=== PATIENT | male | born 1950 | race Caucasian/White ===

== ENCOUNTER 2018-11-19 13:24 | Emergency (ER) | payer MEDICARE ==
[~2018-11-19] VITALS: Ht 180.3 cm; Wt 87.5 kg
[2018-11-19 13:44] VITALS: BP 142/85
[2018-11-19 14:35] LABS: BASOPHILS # (AUTO) 0.08 x10^3/uL (0-0.1); BASOPHILS % (AUTO) 1 % (0-1); EOSINOPHILS # (AUTO) 0.19 x10^3/uL (0-0.4); EOSINOPHILS % (AUTO) 3 % (1-7); LYMPHOCYTES # (AUTO) 1.45 x10^3/uL (1-3.4); LYMPHOCYTES % (AUTO) 24 % (22-44); MD NO; MEAN CORPUSCULAR HGB CONC 34.8 g/dL (33.2-36.2); MEAN CORPUSCULAR VOLUME 91.9 fL (81-97); MEAN PLATELET VOLUME 7.6 fL (7.4-10.4); MONOCYTES # (AUTO) 0.64 x10^3/uL (0.2-0.8); MONOCYTES % (AUTO) 11 % (2-9); NEUTROPHILS % (AUTO) 61 % (42-75); PLATELET COUNT 211 x10^3/uL (130-400); RED BLOOD COUNT 5.05 x10^6/uL (4.38-5.82); RED CELL DISTRIBUTION WIDTH 13.9 % (9.4-14.8)
[2018-11-19 14:41] LABS: ALBUMIN 3.6 g/dL (3.4-5.0); ANION GAP 7 mmol/L (5-15); CALCIUM 8.2 mg/dL (8.5-10.1); CHLORIDE 108 mmol/L (98-107); CREATININE 1.23 mg/dL (0.7-1.3)
== END 2018-11-19 16:02 | disposition home or self-care (01) ==
LOC: ED 15:50
DX: G44.52 New daily persistent headache (NDPH) (principal); G30.9 Alzheimer's disease, unspecified
CPT/HCPCS: 36415; 70450; 80048; 82040; 85025; 99284

== ENCOUNTER 2019-03-07 17:53 | Emergency (ER) | payer MEDICARE ==
[~2019-03-07] VITALS: Ht 180.3 cm; Wt 82.0 kg
[2019-03-07] MEDS ORDERED: TIZA2CAP PO (18:15)
[2019-03-07] MEDS ORDERED: MEMA5TAB PO (18:15)
[2019-03-07] MEDS ORDERED: HYDR-3237 PO (18:15)
[2019-03-07] MEDS ORDERED: LAMO100T5 PO (18:15)
[2019-03-07] MEDS ORDERED: DONE10TA7 PO (18:15)
[2019-03-07] MEDS ORDERED: CITA40TA5 PO (18:15)
[2019-03-07] MEDS ORDERED: DICL75TA3 PO (18:15)
[2019-03-07] MEDS ORDERED: FAMO20TA3 PO (18:15)
--- NOTE | 2019-03-07 18:19 | NUR ---
PT BIB FAMILY FOR INTERMITTENT ABDOMINAL PAIN SINCE APPROX 09/2018. STATES INCREASED PAIN AFTER SPINAL CORD STIMULATOR WAS PLACED. SEEN BY GI WHO ORDERED ENDOSCOPY AND COLONOSCOPY WITHOUT RESULTS AT THIS TIME. PT REPORTS INCREASED RUQ ABDOMINAL PAIN X LAST WEEK WITH SOME VOMITING ON 03/04. PT SEEN IN [facility] TODAY AND REFERRED TO ED. NO OTHER SYMPTOMS, PT RESTING COMFORTABLY IN BED WITH NO NEEDS AT THIS TIME. AWAITING ERP ASSESSMENT.
[2019-03-07] MEDS ORDERED: OMNIPAQUE 350 MG/ML, 100ML BOTTLE ONE (19:00)
--- NOTE | 2019-03-07 19:02 | NUR ---
REPORT FROM ARIS ORDOÑEZ. PT SITTING UP IN [facility] NOTED. BP/SPO2 MONITORING IN PLACE. VS WNL. FAMILY AT BEDSIDE. PT DENIES PAIN/NAUSEA AT THIS TIME AND DENIES NEED FOR MEDICATIONS. PT/FAMILY UPDATED TO POC (CT &UA/RESULTS/RECHECK) AND DEMONSTRATES UNDERSTANDING. IV ESTABLISHED, LABS DRAWN. PT PROVIDED URINAL FOR UA.
[2019-03-07 19:09] LABS: BASOPHILS # (AUTO) 0.02 x10^3/uL (0-0.1); BASOPHILS % (AUTO) 0 % (0-1); EOSINOPHILS # (AUTO) 0.01 x10^3/uL (0-0.4); EOSINOPHILS % (AUTO) 0 % (1-7); LYMPHOCYTES # (AUTO) 0.83 x10^3/uL (1-3.4); LYMPHOCYTES % (AUTO) 14 % (22-44); MD NO; MEAN CORPUSCULAR HEMOGLOBIN 31.7 pg (27.5-34.5); MEAN CORPUSCULAR HGB CONC 34.3 g/dL (33.2-36.2); MEAN CORPUSCULAR VOLUME 92.5 fL (81-97); MEAN PLATELET VOLUME 7.5 fL (7.4-10.4); MONOCYTES # (AUTO) 0.35 x10^3/uL (0.2-0.8); MONOCYTES % (AUTO) 6 % (2-9); NEUTROPHILS % (AUTO) 79 % (42-75); PLATELET COUNT 246 x10^3/uL (130-400); RED BLOOD COUNT 4.75 x10^6/uL (4.38-5.82); RED CELL DISTRIBUTION WIDTH 12.8 % (9.4-14.8)
[2019-03-07 19:20] LABS: ALANINE AMINOTRANSFERASE 23 U/L (12-78); ALBUMIN 3.9 g/dL (3.4-5.0); ANION GAP 5 mmol/L (5-15); CALCIUM 8.5 mg/dL (8.5-10.1); CHLORIDE 107 mmol/L (98-107); CREATININE 1.14 mg/dL (0.7-1.3)
--- NOTE | 2019-03-07 19:20 | NUR ---
UA COLLECTED AND SENT
[2019-03-07 19:25] LABS: ALKALINE PHOSPHATASE 55 U/L (45-117); BILIRUBIN,TOTAL 1.2 mg/dL (0.2-1.0); TROPONIN I < 0.015 ng/mL (0.000-0.045)
[2019-03-07 19:33] LABS: MICROSCOPIC NOT IND
[2019-03-07 19:35] LABS: CULTURE INDICATED? NO
[2019-03-07 20:49] VITALS: BP 160/91
== END 2019-03-07 20:55 | disposition home or self-care (01) ==
LOC: ED 19:49
DX: R10.84 Generalized abdominal pain (principal); R11.2 Nausea with vomiting, unspecified; M19.90 Unspecified osteoarthritis, unspecified site
CPT/HCPCS: 36415; 74177; 80053; 81003; 83690; 84484; 85025; 99284; Q9967

== ENCOUNTER 2019-04-14 11:58 | Emergency (ER) | payer MEDICARE ==
[~2019-04-14] VITALS: Ht 180.3 cm; Wt 78.0 kg
[~2019-04-14 11:58] MED LIST: CITA40TA5 PO; DICL75TA3 PO; DONE10TA7 PO; FAMO20TA3 PO; HYDR-3237 PO; LAMO100T5 PO; MEMA5TAB PO; TIZA2CAP PO
[2019-04-14] MEDS ORDERED: ONDANSETRON 2MG/ML, 2ML IVPush ONE (13:00)
[2019-04-14] MEDS ORDERED: FAMOTIDINE 20 MG/2 ML IV ONE (13:00)
[2019-04-14] MEDS ORDERED: SODIUM CHLORIDE FLUSH 10ML SYR IVF ONE (13:00)
[2019-04-14 13:05] LABS: BASOPHILS # (AUTO) 0.03 x10^3/uL (0-0.1); BASOPHILS % (AUTO) 1 % (0-1); EOSINOPHILS # (AUTO) 0.07 x10^3/uL (0-0.4); EOSINOPHILS % (AUTO) 1 % (1-7); LYMPHOCYTES # (AUTO) 1.15 x10^3/uL (1-3.4); LYMPHOCYTES % (AUTO) 24 % (22-44); MD NO; MEAN CORPUSCULAR HEMOGLOBIN 31.6 pg (27.5-34.5); MEAN CORPUSCULAR HGB CONC 34.8 g/dL (33.2-36.2); MEAN CORPUSCULAR VOLUME 90.9 fL (81-97); MEAN PLATELET VOLUME 7.3 fL (7.4-10.4); MONOCYTES % (AUTO) 8 % (2-9); NEUTROPHILS # (AUTO) 3.19 x10^3/uL (1.8-6.8); NEUTROPHILS % (AUTO) 66 % (42-75); PLATELET COUNT 225 x10^3/uL (130-400); RED BLOOD COUNT 4.59 x10^6/uL (4.38-5.82); RED CELL DISTRIBUTION WIDTH 13.4 % (9.4-14.8)
[2019-04-14 13:15] LABS: ALBUMIN 3.8 g/dL (3.4-5.0); ANION GAP 5 mmol/L (5-15); CALCIUM 8.2 mg/dL (8.5-10.1); CHLORIDE 108 mmol/L (98-107)
[2019-04-14 13:19] LABS: CREATININE 0.88 mg/dL (0.7-1.3)
[2019-04-14 13:20] LABS: ALANINE AMINOTRANSFERASE 20 U/L (12-78); ALKALINE PHOSPHATASE 50 U/L (45-117); BILIRUBIN,TOTAL 0.9 mg/dL (0.2-1.0); TOTAL PROTEIN 6.6 g/dL (6.4-8.2)
[2019-04-14 13:23] LABS: MICROSCOPIC NOT IND
[2019-04-14 13:24] LABS: CULTURE INDICATED? NO
--- NOTE | 2019-04-14 13:25 | NUR ---
AT BEDSIDE. AWAITING DISPO.
[2019-04-14] MEDS ORDERED: FAMOTIDINE 20 MG/2 ML ONE (13:59)
[2019-04-14] MEDS ORDERED: ONDANSETRON 2MG/ML, 2ML ONE (13:59)
[2019-04-14 14:05] VITALS: BP 132/84
--- NOTE | 2019-04-14 14:05 | NUR ---
BREAK RN: DR MARQUES HAS UPDATED PATIENT AND . VS STABLE. NO ACUTE DISTRESS NOTED. WILL CONTINUE TO MONITOR WHILE PRIMARY RN IS ON BREAK.
--- NOTE | 2019-04-14 14:57 | NUR ---
PT GIVEN CRACKERS AND JUICE AFTER MEDICATED FOR ABDOMINAL PAIN. PT UOB WITH TO BATHROOM.
[2019-04-14] MEDS ORDERED: SUCRALFATE 1 GM/10 ML UDC PO SCH (16:00)
== END 2019-04-14 15:52 | disposition home or self-care (01) ==
LOC: ED 14:00
DX: R10.13 Epigastric pain (principal); R63.0 Anorexia; G30.9 Alzheimer's disease, unspecified; F02.80 Dementia in other diseases classified elsewhere, unspecified severity, without behavioral disturbance, psychotic disturbance, mood disturbance, and anxiety; Z88.1 Allergy status to other antibiotic agents
CPT/HCPCS: 36415; 74022; 80053; 81003; 83690; 85025; 93005; 96374; 96375; 99284; J2405; J3490

== ENCOUNTER → 2019-07-15 | Outpatient (CLI) | payer MEDICARE | END | disposition home or self-care (01) | LOC: RAD 07:29 | PROVIDERS: ATTEND Nurse Practitioner Family | DX: R63.4 Abnormal weight loss (principal); R10.13 Epigastric pain; K59.00 Constipation, unspecified | CPT/HCPCS: 74240; 74248 ==